=== PATIENT | female | born 1990 | race Caucasian/White ===

== ENCOUNTER 2018-10-24 12:20 | Emergency (ER) | payer MEDICAID, OTHER ==
[~2018-10-24] VITALS: Ht 165.1 cm; Wt 71.8 kg
[2018-10-24 12:24] VITALS: BP 119/72
[2018-10-24] MEDS ORDERED: PRED20TA PO (13:52)
[2018-10-24] MEDS ORDERED: HYDR28CR14 TOP (13:52)
== END 2018-10-24 14:03 | disposition home or self-care (01) ==
LOC: ER 12:21
DX: L23.9 Allergic contact dermatitis, unspecified cause (principal); Z79.899 Other long term (current) drug therapy
CPT/HCPCS: 99283